=== PATIENT | male | born 1945 | race Caucasian/White ===

== ENCOUNTER 2018-03-25 07:16 | Day surgery (SDC) | payer MEDICARE, BC ==
[~2018-03-25 07:16] MED LIST: KETOROLAC TROMETHAMINE 0.45% 4 DROP/0.4 ML DROPERETTE OD PRN
[2018-03-25] MEDS: TROPICAMIDE 1% OPH SOLN 3 ML OD PRN ×3 (08:16→08:36)
[2018-03-25] MEDS: BESIFLOXACIN HCL 0.6% OPH SUSP 5 ML BOTTLE OD PRN ×5 (08:16→09:33)
[2018-03-25] MEDS: CYCLOPENTOLATE 0.2%/PHENYLEPHRINE 1% OPH SOLN 2 ML OD PRN ×3 (08:16→08:36)
[2018-03-25] MEDS: TETRACAINE HCL 0.5% OPH SOLN 0.6 ML DROPERETTE OD PRN ×2 (08:17→08:36)
[2018-03-25] MEDS ORDERED: MIDAZOLAM 2 MG/2 ML INJ ONE (08:45)
[2018-03-25] MEDS: EPINEPHRINE INJ/PF 1 MG/1 ML AMPULE ONE ×2 (09:00→09:20)
[2018-03-25] MEDS: LIDOCAINE 4% INJ/PF (40 MG/ML) 5 ML AMPUL OD PRN ×2 (09:00→09:20)
[2018-03-25] MEDS: BUPIVACAINE HCL 0.75% INJ/PF (7.5 MG/1 ML) 10 ML SDV OD PRN ×2 (09:00→09:20)
[2018-03-25] MEDS: LIDOCAINE 1% INJ-PF (10 MG/ML) 30 ML SDV ONE ×2 (09:01→09:20)
[2018-03-25] MEDS: CHONDR SU A NA/HYALUR INTRAOC KIT (SURGICARE) ONE ×2 (09:01→09:20)
--- NOTE | 2018-03-25 10:32 | [facility] OPERATIVE REPORT E ---
[facility] Operative Report NAME: RENAE LIVINGSTON AGE: 72Y DATE OF SURGERY: 03/25/2018 ROOM: PREOPERATIVE DIAGNOSIS: CATARACT, RIGHT EYE. POSTOPERATIVE DIAGNOSIS: CATARACT, RIGHT EYE. PROCEDURE PERFORMED: PHACOEMULSIFICATION WITH POSTERIOR CHAMBER INTRAOCULAR LENS, RIGHT EYE. SURGEON: JENNIFER RESTREPO MD ANESTHESIA: TOPICAL WITH MAC. INDICATIONS FOR SURGERY: Difficulty reading road signs and small print. Best corrected visual acuity 20/60. PROCEDURE: The patient was brought to the Operating Room and placed on the operative table. Following tetracaine drops, topical anesthesia was administered. This consisted of instrument wipe pledgets soaked in a solution of 4% Xylocaine mixed with 0.75% Marcaine in a 1:2 ratio. A 2 x 1 cm pledget was placed in the superior fornix. A 1 x 1 cm pledget was placed in the inferior fornix. The eye was patched shut for 5 minutes. The patch was removed. The eye was sterilely prepped and draped in the usual manner. Lid speculum was placed in the eye. The pledgets were removed. 4-0 black silk sutures were placed around the superior and the inferior rectus muscles to be used as traction. A conjunctival peritomy was made at the 10 o'clock position. Hemostasis was obtained with bipolar cautery. A posterior limbal groove was created using a crescent knife and dissected anteriorly towards the cornea. A sharp point blade was used to create a paracentesis site at the 2 o'clock position. A 2.4 mm keratome was used to enter the anterior chamber through the groove. Viscoelastic was injected into the anterior chamber. An anterior capsulotomy was performed using Utrata forceps in a capsulorrhexis fashion. Hydrodissection and hydrodelineation were performed. Phacoemulsification was performed in zkkkgm-zcs-xbksxgn technique. A total of 4.67 CDE seconds phaco time was used. Following this, the I/A unit was used to remove residual cortex. Viscoelastic was injected into the capsular bag. Intraocular lens model SN60WF, 20.5 diopters, serial number [id number] was placed in the capsular bag. The I/A unit was used to remove residual viscoelastic. The wound was seen to be watertight under high and low pressure, and no sutures were placed. The intraocular lens was well centered. The pressure was adjusted in the eye to normal pressure. The 4-0 black silk sutures and lid speculum were removed. The eye was shielded after Besivance drops were placed. The patient tolerated the procedure well and was sent to the Recovery Room in good condition. DICTATING PHYSICIAN: JENNIFER RESTREPO M.D. DICTATING PHYSICIAN: JENNIFER RESTREPO M.D. [id number] PHY#: [id number] ID: [id number] JOB#: [id number] ACCT: [id number] cc:JENNIFRE RESTREPO M.D. >
--- NOTE | 2018-03-25 10:32 | [facility] DISCHARGE SUMMARY E ---
[facility] Discharge Summary NAME: RENAE LIVINGSTON AGE: 72Y ADMITTED: 03/25/2018 DISCHARGED: 03/25/2018 FINAL DIAGNOSIS: CATARACT, RIGHT EYE HOSPITAL COURSE: The patient is a 72-year-old gentleman who underwent uneventful cataract extraction with intraocular lens implant, right eye on 03/25/2018. He will be discharged to home. He is instructed to resume preoperative medications, take Tylenol as needed for discomfort, to keep his eye shielded, to use Besivance, Durezol and Prolensa at 3 p.m. and 8 p.m., and to follow up in my office in 1 day. DICTATING PHYSICIAN: JENNIFER RESTREPO M.D. [id number] PHY#: [id number] ID: [id number] JOB#: [id number] ACCT: [id number] cc:JENNIFER RESTREPO M.D. >
== END 2018-03-25 10:21 | disposition home or self-care (01) ==
LOC: SC 07:16
PROVIDERS: ATTEND Ophthalmology
DX: H25.813 Combined forms of age-related cataract, bilateral (principal); Z87.891 Personal history of nicotine dependence
CPT/HCPCS: 66984; V2632; J2250; J3490 ×4; A9270; J0171

== ENCOUNTER 2018-04-15 07:09 | Day surgery (SDC) | payer MEDICARE, BC ==
[~2018-04-15 07:09] MED LIST changes: +BUPIVACAINE HCL 0.75% INJ/PF (7.5 MG/1 ML) 10 ML SDV OS PRN; -KETOROLAC TROMETHAMINE 0.45% 4 DROP/0.4 ML DROPERETTE OD PRN; +KETOROLAC TROMETHAMINE 0.45% 4 DROP/0.4 ML DROPERETTE OS PRN; +LIDOCAINE 4% INJ/PF (40 MG/ML) 5 ML AMPUL OS PRN
[2018-04-15] MEDS: TETRACAINE HCL 0.5% OPH SOLN 0.6 ML DROPERETTE OS PRN ×2 (08:15→08:46)
[2018-04-15] MEDS: BESIFLOXACIN HCL 0.6% OPH SUSP 5 ML BOTTLE OS PRN ×4 (08:15→09:25)
[2018-04-15] MEDS: TROPICAMIDE 1% OPH SOLN 3 ML OS PRN ×2 (08:15→08:35)
[2018-04-15] MEDS: CYCLOPENTOLATE 0.2%/PHENYLEPHRINE 1% OPH SOLN 2 ML OS PRN ×3 (08:15→08:45)
[2018-04-15] MEDS ORDERED: MIDAZOLAM 2 MG/2 ML INJ ONE (08:30)
[2018-04-15] MEDS ORDERED: FENTANYL CITRATE INJ/PF 100 MCG/2 ML AMPUL ONE (08:30)
[2018-04-15] MEDS: CHONDR SU A NA/HYALUR INTRAOC KIT (SURGICARE) ONE ×2 (09:08)
[2018-04-15] MEDS: EPINEPHRINE INJ/PF 1 MG/1 ML AMPULE ONE ×2 (09:08)
[2018-04-15] MEDS: LIDOCAINE 1% INJ-PF (10 MG/ML) 30 ML SDV ONE ×2 (09:08)
[2018-04-15] MEDS: DORZOLAMIDE HCL 2%/TIMOLOL MALEAT 0.5% OPH SOLN 10 ML OS PRN ×2 (09:25)
--- NOTE | 2018-04-15 11:03 | [facility] OPERATIVE REPORT E ---
[facility] Operative Report NAME: RENAE LIVINGSTON AGE: 72Y DATE OF SURGERY: 04/15/2018 ROOM: PREOPERATIVE DIAGNOSIS: Cataract, left eye. POSTOPERATIVE DIAGNOSIS: Cataract, left eye. PROCEDURE PERFORMED: Phacoemulsification with posterior chamber intraocular lens, left eye. SURGEON: JENNIFER RESTREPO M.D. ANESTHESIA: Topical with MAC. INDICATIONS FOR SURGERY: Difficulty driving at night. PROCEDURE: The patient was brought to the Operating Room and placed on the operative table. Following tetracaine drops, topical anesthesia was administered. This consisted of instrument wipe pledgets soaked in a solution of 4% Xylocaine mixed with 0.75% Marcaine in a 1:2 ratio. A 2 x 1 cm pledget was placed in the superior fornix. A 1 x 1 cm pledget was placed in the inferior fornix. The eye was patched shut for 5 minutes. The patch was removed. The eye was sterilely prepped and draped in the usual manner. Lid speculum was placed in the eye. The pledgets were removed. 4-0 black silk sutures were placed around the superior and the inferior rectus muscles to be used as traction. A conjunctival peritomy was made at the 10 o'clock position. Hemostasis was obtained with bipolar cautery. A posterior limbal groove was created using a crescent knife and dissected anteriorly towards the cornea. A sharp point blade was used to create a paracentesis site at the 2 o'clock position. A 2.4 mm keratome was used to enter the anterior chamber through the groove. Viscoelastic was injected into the anterior chamber. An anterior capsulotomy was performed using Utrata forceps in a capsulorrhexis fashion. Hydrodissection and hydrodelineation were performed. Phacoemulsification was performed in retkpe-gfy-bbpzolc technique. A total of 7.30 CDE phaco time was used. Following this, the I/A unit was used to remove residual cortex. Viscoelastic was injected into the capsular bag. Intraocular lens model SN60WF, 20.5 diopters, serial number [id number] was placed in the capsular bag. The I/A unit was used to remove residual viscoelastic. The wound was seen to be watertight under high and low pressure, and no sutures were placed. The intraocular lens was well centered. The pressure was adjusted in the eye to normal pressure. The 4-0 black silk sutures and lid speculum were removed. The eye was shielded after Besivance drops were placed. The patient tolerated the procedure well and was sent to the Recovery Room in good condition. A drop of Cosopt was placed in the eye at the end of the surgery. DICTATING PHYSICIAN: JENNIFER RESTREPO M.D. [id number] PHY#: [id number] ID: [id number] JOB#: [id number] ACCT: [id number] cc:JENNIFER RESTREPO M.D. >
--- NOTE | 2018-04-15 11:07 | [facility] DISCHARGE SUMMARY E ---
[facility] Discharge Summary NAME: RENAE LIVINGSTON AGE: 72Y ADMITTED: 04/15/2018 DISCHARGED: 04/15/2018 HOSPITAL COURSE: The patient is a 72-year-old gentleman who underwent uneventful cataract extraction with intraocular lens implant, left eye, on 04/15/2018. He will be discharged to home. He is instructed to resume preoperative medications, to take Tylenol as needed for discomfort, to keep his eye shielded, to use Durezol, Prolensa, and Besivance at 3 p.m. and 8 p.m., and to follow up in my office in 1 day. DICTATING PHYSICIAN: JENNIFER RESTREPO M.D. [id number] PHY#: [id number] ID: [id number] JOB#: [id number] ACCT: [id number] cc:JENNIFER RESTREPO M.D. >
== END 2018-04-15 10:04 | disposition home or self-care (01) ==
LOC: SC 07:09
PROVIDERS: ATTEND Ophthalmology
DX: H25.812 Combined forms of age-related cataract, left eye (principal); Z96.1 Presence of intraocular lens
CPT/HCPCS: 66984; V2632; J2250; J3490 ×4; A9270; J0171; J3010; 142